=== PATIENT | female | born 1960 | race Caucasian/White ===

== ENCOUNTER → 2016-10-15 | Outpatient (REF) | payer MEDICAID ==
[2016-10-15 10:34] LABS: BILIRUBIN,URINE Negative (Negative); CLARITY,URINE Clear; GLUCOSE, URINE (UA) Negative (Negative); LEUKOCYTE ESTERASE ,URINE Negative (Negative); PH,URINE 6.5 (5.0 - 8.0); UROBILINOGEN,URINE 0.2 mg/dL (0.2-1.0)
[2016-10-15 10:37] LABS: COLOR,URINE Dark Yellow; URINE CENTRIFUGED VOLUME <10mL Unspun
[2016-10-15 10:38] LABS: RBC,URINE None Seen /HPF
== END ==
LOC: LAB 09:47
PROVIDERS: ATTEND Family Medicine
DX: Z01.812 Encounter for preprocedural laboratory examination (principal); N39.0 Urinary tract infection, site not specified
CPT/HCPCS: 81003; 81015